=== PATIENT | female | born 2000 | race Hispanic/Latino ===

== ENCOUNTER → 2023-06-15 | Emergency (ER) | payer SELFPAY ==
[~2023-06-15] MED LIST: NA CHLORIDE 0.9% 1,000 ML ONE
[2023-06-15 01:14] LABS: Absolute Lymphocytes (CBC) 2.7 K/uL (0.7-4.9); Hematocrit 38.3 % (36.0-45.0); Lymphocytes % 32.9 % (15.3-44.8); MCV 88.2 fL (80-100); MPV 8.5 fL (7.6-11.3); Platelets 338 thou/uL (152-406); RBC Red Blood Cell Count 4.35 M/uL (3.86-4.86)
[2023-06-15 01:19] LABS: Specific Gravity 1.006 (1.005-1.030); Urine Bacteria <20 /HPF (<20); Urine Bilirubin NEGATIVE (Negative); Urine Blood 2+ (Negative); Urine Clarity Extremely Turbid (Clear); Urine Color Colorless (Yellow); Urine Glucose NEGATIVE (Negative); Urine Protein NEGATIVE (Negative); Urine RBC <5 /HPF (None Seen); Urine Urobilinogen Normal (Normal); Urine WBC Clump Rare /HPF (None Seen)
[2023-06-15 01:20] LABS: Specific Gravity 1.006 (1.005-1.030)
[2023-06-15 01:24] LABS: Barbiturates NEGATIVE (NEGATIVE); Benzodiazepines POSITIVE (NEGATIVE); Cocaine NEGATIVE (NEGATIVE); METHAMPHETAM NEGATIVE (NEGATIVE); Methadone NEGATIVE (NEGATIVE); Opiates NEGATIVE (NEGATIVE); Phencyclidine NEGATIVE (NEGATIVE); THC Cannibis POSITIVE (NEGATIVE)
[2023-06-15 01:32] LABS: Albumin 3.6 g/dL (3.4-5.0); Bilirubin Total 0.3 mg/dL (0.2-1.0); Potassium 4.4 mEq/L (3.5-5.1); Protein, Total 7.1 g/dL (6.4-8.2)
--- NOTE | 2023-06-15 06:18 | EDPHYS ---
Physician Documentation [facility] Name: Lola Vasquez Age: 22 yrs Sex: Female : 2000 Arrival Date: 06/15/2023 Time: 00:26 Bed 16 Private MD: ED Physician Howie Taylor HPI: 06/15 00:44 This 22 yrs old Female presents to ER via Unassigned with complaints of xanax overuse. ec2 00:44 Patient arrives today for evaluation of substance use. Patient reports that she has ec2 been having some stresses in her life and took approximately 20 tablets of Xanax to not feel feelings. States that she does not want to kill himself, states that she wanted to feel numb. Patient reports previous thoughts of suicidal nature however denies any active suicidal thoughts. Reports no self injury behavior. Patient denies any other coingestions.. 00:53 Of note patient states she taken the tablets approximately 2 hours prior to arrival. ec2 She had taken approximately 20 tablets of 2mg xanax. Historical: - Allergies: 02:16 No Known Allergies; pf1 - PMHx: 02:16 Depressive disorder; Anxiety; pf1 02:16 bradycardia; pf1 - PSHx: 02:16 None; pf1 - Immunization history:: Adult Immunizations up to date, Client reports receiving the 1st dose of the Covid vaccine, Last tetanus immunization: < 5 years ago Flu vaccine is not up to date. - Social history:: Smoking status: Reported history of juuling and/or vaping. Patient/guardian denies using alcohol, street drugs, but used to use street drugs. ROS: 00:44 Constitutional: as per hpi ec2 Exam: 00:44 Constitutional: GEN: NAD, awake, alert Head: atraumatic Eyes: EOMI Ears: External ec2 ears are normal. CV: regular rate LUNGS: no respiratory distress ABD: non-distended SKIN: no evidence of rashes MSK: no evidence of trauma NEURO: moves all extremities equally Vital Signs: 00:31 BP 102 / 53; Pulse 59; Resp 14; Temp 97.8; Pulse Ox 99% on R/A; Weight 69.85 kg; Height pf1 5 ft. 3 in. ; Pain 0/10; 01:39 BP 90 / 51; Pulse 55; Resp 20; Pulse Ox 98% on R/A; Pain 0/10; tm6 02:17 BP 88 / 49; Pulse 47; Resp 17; Pulse Ox 100% on R/A; tm6 02:22 BP 91 / 54; Pulse 43; Resp 28; Pulse Ox 100% ; tm6 03:35 BP 103 / 37; Pulse 49; Resp 19; Pulse Ox 100% ; Pain 0/10; tm6 04:35 BP 95 / 56; Pulse 54; Resp 21; Pulse Ox 100% on R/A; Pain 0/10; tm6 06:11 BP 109 / 66; tm6 06:11 Pulse 54; Resp 19; Pulse Ox 99% ; Pain 0/10; tm6 06:28 BP 90 / 38; Pulse 48; Pulse Ox 98% on R/A; tm6 06:45 BP 98 / 58; Pulse 53; Pulse Ox 98% on R/A; tm6 07:00 BP 96 / 50; Pulse 58; Resp 20; Temp 97.6; Pulse Ox 100% on R/A; Pain 0/10; tm6 00:31 Body Mass Index 27.28 (69.85 kg, 160.02 cm) pf1 00:31 Pain Scale: Adult pf1 01:39 Pain Scale: Adult tm6 03:35 Pain Scale: Adult tm6 04:35 Pain Scale: Adult tm6 06:11 Pain Scale: Adult tm6 07:00 Pain Scale: Adult tm6 MDM: 00:31 Patient medically screened. ec2 00:44 ED course: Patient arrives today due to concern for Xanax overdose. Examination ec2 remarkable for well-appearing nontoxic cooperative individual is otherwise in no acute distress with reassuring vital signs. Will obtain lab work and monitor the patient. Patient ultimately has a reassuring examination and does not express suicidal thoughts rather wanted to numb her feelings. I will defer placing a hold on her or psychiatric management as she does not want to be placed in psychiatric facility.. 00:53 ED course: Given the duration of action, will monitor for an additional approximately 4 ec2 hours.. 01:02 ED course: EKG independently reviewed and interpreted by me, shows normal sinus rhythm ec2 heart rate of 59, no acute ST segment elevations, nonconcerning intervals.. 01:40 Data reviewed: vital signs. ec2 01:41 ED course: Metabolic profile reassuring, urine is noninfectious appearing, positive for ec2 benzodiazepines and THC. CBC is reassuring, urine Prag negative. . 02:32 ED course: Of note patient with bradycardia, history of bradycardia, states her ec2 baseline rates her 30s to 50s.. 03:00 ED course: Negative salicylate and Tylenol and alcohol levels. . ec2 06:09 ED course: Patient continues to maintain her airway, is in no acute distress and has ec2 reassuring vital signs.. 06/15 00:43 Order name: CBC with Diff; Complete Time: ec2 06/15 00:43 Order name: CMP; Complete Time: ec2 06/15 00:43 Order name: UAM; Complete Time: ec2 06/15 00:43 Order name: Test, Urine; Complete Time: ec2 06/15 00:43 Order name: Ethanol; Complete Time: 03:00 ec2 06/15 00:44 Order name: UDS; Complete Time: ec2 06/15 01:41 Order name: Acetaminophen; Complete Time: 03:00 ec2 06/15 01:41 Order name: Salicylate; Complete Time: 03:00 ec2 06/15 00:43 Order name: EKG - Nurse/Tech; Complete Time: 00:44 ec2 Administered Medications: 02:18 Drug: NS 0.9% IV 1000 ml IV at 1 bolus Per protocol; 1000 mL bolus Route: IV; Rate: 1 tm6 bolus; Site: right antecubital; Disposition Summary: 06/15/23 06:18 Discharge Ordered Notes: Location: Home ec2 Condition: Stable ec2 Diagnosis - Drug abuse counseling and surveillance ec2 - Benzodiazepine Abuse ec2 Followup: ec2 - With: Private Physician - When: - Reason: Re-evaluation by your physician Discharge Instructions: - Discharge Summary Sheet ec2 - Benzodiazepine Overdose ec2 Forms: - Medication Reconciliation Form ec2 - Thank You Letter ec2 - Antibiotic Education ec2 - Prescription Opioid Use ec2 - Patient Portal Instructions ec2 - Leadership Thank You Letter ec2 Signatures: Dispatcher [employer] Ada Arambula RN RN pf1 Howie Taylor MD MD ec2 Felton Roland RN RN tm6 Corrections: (The following items were deleted from the chart) 00:59 00:53 Of note patient states she taken the tablets approximately 2 hours prior to ec2 arrival.. ec2
--- NOTE | 2023-06-15 06:18 | ER ---
Nurse's Notes [facility] Name: Lola Vasquez Age: 22 yrs Sex: Female : 2000 Arrival Date: 06/15/2023 Time: 00:26 Bed 16 Private MD: Diagnosis: Drug abuse counseling and surveillance;Benzodiazepine Abuse Presentation: 06/15 00:31 Chief complaint: Patient states: intentional overdose of Xanax 20 pills, onset 2230. pf1 Patient stated just wanted to feel numb due to having problems with finance. Patient denies any suicidal or homicidal ideations. 00:31 Coronavirus screen: Vaccine status: Patient reports receiving the 1st dose of the Covid pf1 vaccine. Client denies travel out of the [place] in the last 14 days. At this time, the client does not indicate any symptoms associated with coronavirus-19. Ebola Screen: Patient negative for fever greater than or equal to 101.5 degrees Fahrenheit, and additional compatible Ebola Virus Disease symptoms. Initial Sepsis Screen: Does the patient meet any 2 criteria? No. Patient's initial sepsis screen is negative. Does the patient have a suspected source of infection? No. Patient's initial sepsis screen is negative. Risk Assessment: Do you want to hurt yourself or someone else? Patient reports no desire to harm self or others. 00:31 Method Of Arrival: Wheelchair pf1 00:31 Acuity: KATIUSKA 2 pf1 Historical: - Allergies: 02:16 No Known Allergies; pf1 - PMHx: 02:16 Depressive disorder; Anxiety; pf1 02:16 bradycardia; pf1 - PSHx: 02:16 None; pf1 - Immunization history:: Adult Immunizations up to date, Client reports receiving the 1st dose of the Covid vaccine, Last tetanus immunization: < 5 years ago Flu vaccine is not up to date. - Social history:: Smoking status: Reported history of juuling and/or vaping. Patient/guardian denies using alcohol, street drugs, but used to use street drugs. Screenin:07 [facility] ED Fall Risk Assessment (Adult) History of falling in the last 3 months, tm6 including since admission No falls in past 3 months (0 pts). Abuse screen: Denies threats or abuse. Denies injuries from another. Nutritional screening: No deficits noted. Tuberculosis screening: No symptoms or risk factors identified. Assessment: 01:07 General: Appears in no apparent distress. Behavior is calm, cooperative. Pain: Denies tm6 pain. Neuro: Level of Consciousness is awake, alert, obeys commands, Oriented to person, place, time, situation. Cardiovascular: Capillary refill < 3 seconds Patient's skin is warm and dry. Rhythm is sinus rhythm. Respiratory: Airway is patent Respiratory effort is even, unlabored, Respiratory pattern is regular, symmetrical. GI: Abdomen is flat, non-distended. : No signs and/or symptoms were reported regarding the genitourinary system. EENT: No signs and/or symptoms were reported regarding the EENT system. Derm: No signs and/or symptoms reported regarding the dermatologic system. Musculoskeletal: No signs and/or symptoms reported regarding the musculoskeletal system. 01:24 Reassessment: Poison Control recommendations per Linda Dubon: lab tox work up for pf1 acetaphemin, alcohol and salicylate levels. Monitor patient for 6-8 hours for hypotension, respiratory depression and AMS. To give patient NS 0.9% IV fluids for hypotension. Case # [id number]. 02:18 Reassessment: Patient appears in no apparent distress at this time. No changes from tm6 previously documented assessment. Patient and/or family updated on plan of care and expected duration. Pain level reassessed. 03:36 Reassessment: Patient appears in no apparent distress at this time. No changes from tm6 previously documented assessment. Patient and/or family updated on plan of care and expected duration. Pain level reassessed. 04:35 Reassessment: Patient appears in no apparent distress at this time. No changes from tm6 previously documented assessment. Patient and/or family updated on plan of care and expected duration. Pain level reassessed. Patient is alert, oriented x 3, equal unlabored respirations, skin warm/dry/pink. 06:13 Reassessment: Patient appears in no apparent distress at this time. No changes from tm6 previously documented assessment. Patient and/or family updated on plan of care and expected duration. Pain level reassessed. Patient is alert, oriented x 3, equal unlabored respirations, skin warm/dry/pink. 07:00 Reassessment: Patient appears in no apparent distress at this time. Patient states tm6 feeling better. Overdose: 03:36 [place] Suicide Severity Screening: "In the past month, have you wished you were tm6 or wished you could go to sleep and not wake up?" Patient responds "no." "In the past month, have you actually had any thoughts of killing yourself?" Patient responds "no." "In your lifetime, have you ever done anything, started to do anything, or prepared to do anything to end your life?" Patient responds "yes." Patient reports suicidal intent occurred greater than 3 months prior. 03:37 Patient took xanax 20 tabs of 2mg. tm6 07:00 [place] Suicide Severity Screening: "In the past month, have you wished you were tm6 or wished you could go to sleep and not wake up?" Patient responds "yes." Based off client's responses, additional C-SSRS screening questions required. "In the past month, have you actually had any thoughts of killing yourself?" Patient responds "no.". Vital Signs: 00:31 BP 102 / 53; Pulse 59; Resp 14; Temp 97.8; Pulse Ox 99% on R/A; Weight 69.85 kg; Height pf1 5 ft. 3 in. ; Pain 0/10; 01:39 BP 90 / 51; Pulse 55; Resp 20; Pulse Ox 98% on R/A; Pain 0/10; tm6 02:17 BP 88 / 49; Pulse 47; Resp 17; Pulse Ox 100% on R/A; tm6 02:22 BP 91 / 54; Pulse 43; Resp 28; Pulse Ox 100% ; tm6 03:35 BP 103 / 37; Pulse 49; Resp 19; Pulse Ox 100% ; Pain 0/10; tm6 04:35 BP 95 / 56; Pulse 54; Resp 21; Pulse Ox 100% on R/A; Pain 0/10; tm6 06:11 BP 109 / 66; tm6 06:11 Pulse 54; Resp 19; Pulse Ox 99% ; Pain 0/10; tm6 06:28 BP 90 / 38; Pulse 48; Pulse Ox 98% on R/A; tm6 06:45 BP 98 / 58; Pulse 53; Pulse Ox 98% on R/A; tm6 07:00 BP 96 / 50; Pulse 58; Resp 20; Temp 97.6; Pulse Ox 100% on R/A; Pain 0/10; tm6 00:31 Body Mass Index 27.28 (69.85 kg, 160.02 cm) pf1 00:31 Pain Scale: Adult pf1 01:39 Pain Scale: Adult tm6 03:35 Pain Scale: Adult tm6 04:35 Pain Scale: Adult tm6 06:11 Pain Scale: Adult tm6 07:00 Pain Scale: Adult tm6 ED Course: 00:31 Patient arrived in ED. pf1 00:31 Howie Taylor MD is Attending Physician. ec2 01:07 Inserted saline lock: 20 gauge in right antecubital area, using aseptic technique. tm6 01:07 Patient has correct armband on for positive identification. Bed in low position. Call tm6 light in reach. Side rails up X 1. Adult w/ patient. Provided Education on: plan of care. Client placed on continuous cardiac and pulse oximetry monitoring. NIBP monitoring applied. pillowcase folder on. Noise minimized. 01:38 Felton Roland RN is Primary Nurse. tm6 02:16 Triage completed. pf1 07:00 No provider procedures requiring assistance completed. IV discontinued, intact, tm6 bleeding controlled, No redness/swelling at site. Pressure dressing applied. Administered Medications: 02:18 Drug: NS 0.9% IV 1000 ml IV at 1 bolus Per protocol; 1000 mL bolus Route: IV; Rate: 1 tm6 bolus; Site: right antecubital; Medication: 01:07 VIS not applicable for this client. tm6 Outcome: 06:18 Discharge ordered by . ec2 07:01 Discharged to home ambulatory, with family, tm6 07:01 Condition: stable 07:01 Discharge instructions given to patient, family, Instructed on discharge instructions, follow up and referral plans. Demonstrated understanding of instructions, follow-up care, 07:02 Patient left the ED. tm6 Signatures: Ada Judd RN RN pf1 Howie Taylor MD MD ec2 Felton Roland RN RN tm6
[2023-06-15 07:12] VITALS: O2SAT 100
[2023-06-15 07:35] VITALS: BP 96/50; TEMP 97.6
--- NOTE | 2023-06-16 10:57 | EKG ---
Test Date: 2023-06-15 Test Time: 00:55:53 [place] Follower: GERARDO MEASUREMENT RESULTS: Intervals: Rate: 59 SD: 148 QRSD: 84 QT: 374 QTc: 370 [place]: P: 76 SD: 148 QRS: 87 T: 61 INTERPRETIVE STATEMENTS: Sinus bradycardia with sinus arrhythmia Otherwise normal ECG No previous ECG available for comparison Electronically Signed On 06-16-23 10:56:06 OPERATIONS LEAD by Orlando Oswald
== END ==
LOC: ER 00:26
DX: F13.10 Sedative, hypnotic or anxiolytic abuse, uncomplicated (principal); Z71.51 Drug abuse counseling and surveillance of drug abuser
CPT/HCPCS: 36415; 80053; 80143; 80179; 80307; 81001; 81025; 82077; 85025; 93005; J7030